=== PATIENT | male | born 1965 ===

== ENCOUNTER 2020-05-07 09:42 | Emergency (ER) | payer SELFPAY ==
[2020-05-07] MEDS ORDERED: DIPHtheria,PERTUSSIS(ACELL),TETANUS VACCINE/PF 0.5 ML VIAL IM ONE (09:46)
[2020-05-07 09:50] VITALS: BP 145/71
--- NOTE | 2020-05-07 10:27 | XRay Report ---
EXAMINATION: Right foot radiograph, 3 views, 05/07/2020 CLINICAL INFORMATION: Laceration to the right heel with glass 3 days ago COMPARISON: None. FINDINGS: There is no evidence of acute fracture or dislocation. Moderate bony degenerative changes a re noted. There is a 6 mm radiodense foreign body within the heel soft tissues with associated soft tissue swel ling. IMPRESSION: 1. Radiodense foreign body measuring 6 mm within the heel soft tissues. Signer Name: Judy Jackman MD Signed: 05/07/2020 10:23 AM Workstation Name: [id number]
--- NOTE | 2020-05-07 10:30 | Emergency Department Report ---
- General Chief complaint: Skin/Abscess/Foreign Body Stated complaint: GLASS RT FOOT Time Seen by Provider: 05/07/20 09:44 Source: patient Mode of arrival: Ambulatory Limitations: No Limitations - History of Present Illness Initial comments: This is a 54-year-old male nontoxic, well nourished in appearance, no acute signs of distress presents to the ED with c/o of right posterior foot foreign body that occurred 3 days ago. Patient stated that he stepped on a glass but has never follow-up with a primary care doctor. Patient denies being up-to-date with tetanus. Patient denies decreased sensation or range of motion. Patient that he was barefoot. Patient stated bleeding is under control. Denies any numbness, tingling, fever, chills, nausea, vomiting, chest pain, shortness of breath, headache or stiff neck. Patient denies any allergies to significant past medical history. -: days(s) (3) Tetanus Up to Date: no Location: R foot Severity: mild Severity scale (0 -10): 3 Quality: aching Consistency: constant Improves with: none Worsens with: none Context: none Associated symptoms: denies other symptoms Treatments Prior to Arrival: none - Related Data Previous Rx's Medication Instructions Recorded Last Taken Type Clindamycin [Clindamycin CAP] 300 mg PO Q8H #21 cap 05/07/20 Unknown Rx Naproxen [Naprosyn TAB] 500 mg PO Q12H PRN #12 tablet 05/07/20 Unknown Rx Allergies Allergy/AdvReac Type Severity Reaction Status Date / Time shellfish derived Allergy Swelling Verified 05/07/20 09:44 Abscess Boil HPI - HPI Chief Complaint: Skin/Abscess/Foreign Body Stated Complaint: GLASS RT FOOT Time Seen by Provider: 05/07/20 09:44 Home Medications: Previous Rx's Medication Instructions Recorded Last Taken Type Clindamycin [Clindamycin CAP] 300 mg PO Q8H #21 cap 05/07/20 Unknown Rx Naproxen [Naprosyn TAB] 500 mg PO Q12H PRN #12 tablet 05/07/20 Unknown Rx Allergies/Adverse Reactions: Allergies Allergy/AdvReac Type Severity Reaction Status Date / Time shellfish derived Allergy Swelling Verified 05/07/20 09:44 ED Review of Systems ROS: Stated complaint: GLASS RT FOOT Other details as noted in HPI Comment: All other systems reviewed and negative Constitutional: denies: chills, fever Eyes: denies: eye pain, eye discharge, vision change ENT: denies: ear pain, throat pain Respiratory: denies: cough, shortness of breath, wheezing Cardiovascular: denies: chest pain, palpitations Endocrine: no symptoms reported Gastrointestinal: denies: abdominal pain, nausea, diarrhea Genitourinary: denies: urgency, dysuria Musculoskeletal: denies: back pain, joint swelling, arthralgia Skin: denies: rash, lesions Neurological: denies: headache, weakness, paresthesias Psychiatric: denies: anxiety, depression Hematological/Lymphatic: denies: easy bleeding, easy bruising ED Past Medical Hx - Social History Smoking Status: Never Smoker Substance Use Type: None - Medications Home Medications: Home Medications Medication Instructions Recorded Confirmed Last Taken Type Clindamycin [Clindamycin CAP] 300 mg PO Q8H #21 cap 05/07/20 Unknown Rx Naproxen [Naprosyn TAB] 500 mg PO Q12H PRN #12 tablet 05/07/20 Unknown Rx ED Physical Exam - General Limitations: No Limitations General appearance: alert, in no apparent distress - Head Head exam: Present: atraumatic, normocephalic - Eye Eye exam: Present: normal appearance - Neck Neck exam: Present: full ROM - Respiratory Respiratory exam: Absent: respiratory distress - Cardiovascular Cardiovascular Exam: Present: regular rate - Extremities Exam Extremities exam: Present: full ROM, tenderness, normal capillary refill. Absent: joint swelling - Expanded Lower Extremity Exam Right Hip exam: Present: full ROM. Absent: tenderness Upper Leg exam: Present: normal inspection, full ROM. Absent: tenderness Knee exam: Present: normal inspection, full ROM. Absent: tenderness Lower Leg exam: Present: normal inspection, full ROM. Absent: tenderness Ankle exam: Present: normal inspection, full ROM. Absent: tenderness Foot/Toe exam: Present: full ROM, tenderness, abrasion, foreign body. Absent: swelling, laceration, ecchymosis, deformity, crepidus, dislocation, erythema, amputation, puncture wound, calcaneal tenderness, tenderness at base of 5th metatarsal, nail avulsion, subungual hematoma Neuro vascular tendon exam: Present: no vascular compromise Gait: Positive: observed and limited by pain 1 - Glass foreign body noted - Back Exam Back exam: Present: normal inspection - Neurological Exam Neurological exam: Present: alert, oriented X3 - Psychiatric Psychiatric exam: Present: normal affect, normal mood - Skin Skin exam: Present: warm, dry, intact, normal color. Absent: rash ED Course Vital Signs 05/07/20 09:49 Temperature 98.2 F Pulse Rate 71 Respiratory 18 Rate Blood Pressure 145/71 O2 Sat by Pulse 98 Oximetry - Reevaluation(s) Reevaluation #1: 05/07/20 10:28 Patient is speaking in full sentences with no signs of distress noted. - Procedure Description Procedures done: Under sterile field, I used Betadine to clean the area. I then used 40 mL of normal saline to flush the area. I then used 2% lidocaine plain and injected 2 mL to the wound. I then used a hemostat and removed the glass foreign body. I then applied a sterile 4 x 4 with tape. Minimal bleeding noted but is under control. Patient tolerated procedure well with no signs of distress. Repeat x-ray is unremarkable with successful foreign body removal. ED Medical Decision Making - Radiology Data Referring Physician: HILL OSEI Patient Name: MARTHA ROWLEY Date of : 1965 Sex: Male Report Date: 2020-05-07 Report Status: Finalized [address] [address] XRay Report Signed Patient: MARTHA ROWLEY MR#: [id number] : 1965 Acct:[id number] Age/Sex: 54 / M ADM Date: 05/07/20 Loc: ED Attending Dr: Ordering Physician: HILL SOEI NP Date of Service: 05/07/20 Procedure(s): XR foot 3+V RT Accession Number(s): [id number] cc: HILL OSEI NP Fluoro Time In Minutes: EXAMINATION: Right foot radiograph, 3 views, 05/07/2020 CLINICAL INFORMATION: Laceration to the right heel with glass 3 days ago COMPARISON: None. FINDINGS: There is no evidence of acute fracture or dislocation. Moderate bony degenerative changes are noted. There is a 6 mm radiodense foreign body within the heel soft tissues with associated soft tissue swelling. IMPRESSION: 1. Radiodense foreign body measuring 6 mm within the heel soft tissues. Signer Name: Judy Jackman MD Signed: 05/07/2020 10:23 AM Workstation Name: [id number] Transcribed By: MANDA Dictated By: Judy Jackman MD Electronically Authenticated By: Judy Jackman MD Signed Date/Time: 05/07/20 1023 DD/ 1020 TD/TT: Referring Physician: HILL OSEI Patient Name: MARTHA ROWLEY Date of : 1965 Sex: Male Report Date: 2020-05-07 Report Status: Finalized [facility] [address] [place] [address] XRay Report Signed Patient: MARTHA ROWLEY MR#: [id number] : 1965 Acct:[id number] Age/Sex: 54 / M ADM Date: 05/07/20 Loc: ED Attending Dr: Ordering Physician: HILL OSEI NP Date of Service: 05/07/20 Procedure(s): XR foot 3+V RT Accession Number(s): [id number] cc: HILL OSEI NP Fluoro Time In [facility]: EXAMINATION: Right foot radiograph series, 3 views, 05/07/2020 CLINICAL INFORMATION: Foreign body removal. COMPARISON: Right foot radiograph series, 05/07/2020 at 10:03 AM FINDINGS: The radiodense foreign body within the heel soft tissues is no longer visualized. No focal bony abnormality is noted. IMPRESSION: 1. Interval removal of foreign body within the right heel soft tissues. Signer Name: Judy Jackman MD Signed: 05/07/2020 10:53 AM Workstation Name: [id number] Transcribed By: MANDA Dictated By: Judy Jackman MD Electronically Authenticated By: Judy Jackman MD Signed Date/Time: 05/07/20 1053 DD/ 1052 TD/TT: - Medical Decision Making Patient is stable and was examined by me. A sterile dressing has been applied. Patient was educated on proper wound care. Patient is discharged with clindamycin. Patient was instructed to refer to Follow-up with a primary care doctor in 3-5 days or if symptoms worsen and continue return to emergency room as soon as possible. At time of discharge, the patient does not seem toxic or ill in appearance. No acute signs of distress noted. Patient agrees to discharge treatment plan of care. No further questions noted by the patient. Critical care attestation.: If time is entered above; I have spent that time in minutes in the direct care of this critically ill patient, excluding procedure time. ED Disposition Clinical Impression: Foreign body in foot, right Qualifiers: Encounter type: initial encounter Qualified Code(s): S90.851A - Superficial foreign body, right foot, initial encounter Disposition: TO HOME OR SELFCARE Is pt being admited?: No Does the pt Need Aspirin: No Condition: Stable Instructions: Hand or Foot Foreign Body, Adult, Skin Foreign Body, Wound Care, Adult Additional Instructions: Follow-up with a primary care doctor in 3-5 days or if symptoms worsen and continue return to emergency room as soon as possible. Prescriptions: Clindamycin [Clindamycin CAP] 300 mg PO Q8H #21 cap Naproxen [Naprosyn TAB] 500 mg PO Q12H PRN #12 tablet PRN Reason: Pain , Severe (7-10) Referrals: PRIMARY MD ROGER [Primary Care Provider] - 3-5 Days NICOLE OTT MD [Staff Physician] - 3-5 Days Forms: Work/School Release Form(ED)
--- NOTE | 2020-05-07 10:58 | XRay Report ---
EXAMINATION: Right foot radiograph series, 3 views, 05/07/2020 CLINICAL INFORMATION: Foreign body removal. COMPARISON: Right foot radiograph series, 05/07/2020 at 10:03 AM FINDINGS: The radiodense foreign body within the heel soft tissues is no longer visualized. No focal bony abnormality is noted. IMPRESSION: 1. Interval removal of foreign body within the right heel soft tissues. Signer Name: Judy Jackman MD Signed: 05/07/2020 10:53 AM Workstation Name: [id number]
== END 2020-05-07 11:19 | disposition home or self-care (01) ==
LOC: ED 09:42
DX: S90.851A Superficial foreign body, right foot, initial encounter (principal); Z91.013 Allergy to seafood; Z79.899 Other long term (current) drug therapy; W22.8XXA Striking against or struck by other objects, initial encounter; Y93.89 Activity, other specified; Y92.89 Other specified places as the place of occurrence of the external cause; Y99.8 Other external cause status
CPT/HCPCS: 90471; 90715